=== PATIENT | male | born 1960 | race Caucasian/White ===

== ENCOUNTER 2021-07-04 10:59 | Outpatient (REF) | payer BC, SELFPAY ==
[2021-07-04 14:10] LABS: MANUAL DIFF FLAG NO
[2021-07-04 14:29] LABS: Basophils Absolute Auto 0.1 X10*3/uL (0.0-0.2); Eosinophils Absolute Auto 0.7 X10*3/uL (0.0-0.4); Eosinophils Percent Auto 6.8 % (0-4); Hematocrit 47.4 % (42-52); Hemoglobin 16.2 g/dl (14.0-18.0); Imm Gran Abs Auto 0.06 X10*3/uL (0.00-0.03); Imm Gran Pct Auto 0.6 % (0.0-0.4); Lymphocytes Percent Auto 29.3 % (20-40); Mean Corpuscular HGB Conc 34.2 g/dl (31.0-36.0); Mean Corpuscular Hemoglobin 30.9 pg (27.0-33.0); Mean Corpuscular Volume 90.5 fL (80-98); Mean Platelet Volume 12.1 fL (9.4-12.4); Monocytes Absolute Auto 0.8 X10*3/uL (0.1-1.2); Monocytes Percent Auto 8.1 % (2-11); Neutrophils Absolute Auto 5.6 X10*3/uL (2.0-8.3); Neutrophils Percent Auto 54.2 % (45-73); Platelet Count 200 X10*3/uL (160-400); Red Blood Count 5.24 X10*6/uL (4.60-5.80); Red Cell Distribution Width 12.4 % (11.0-16.0); White Blood Count 10.4 X10*3/uL (4.8-10.8)
[2021-07-04 14:30] LABS: Alanine Aminotransferase 48 U/L (0-40); Albumin Level 4.3 g/dL (3.5-5.0); Alkaline Phosphatase 96 U/L (39-117); Anion Gap 13 (12-20); Aspartate Amino Transferase 36 U/L (5-37); Bilirubin Total 0.6 mg/dL (0.0-1.0); Blood Urea Nitrogen 19 mg/dL (9-16); Carbon Dioxide 22 mmol/L (22-29); Chloride 109 mmol/L (96-108); Cholesterol 208 mg/dL; Estimated Glomerular Filt Rate > 60; Glucose Fasting 97 mg/dL (60-99); HDL Cholesterol 31 mg/dL; LDL Cholesterol Calculated 147 mg/dl; Potassium 4.3 mmol/L (3.3-5.1); Sodium 140 mmol/L (135-145); Total Protein 6.9 g/dL (6.5-8.0); Triglycerides 151 mg/dL
[2021-07-04 14:54] LABS: Prostate Specific Antigen 2.22 ng/mL (<0.05-4.0)
== END 2021-07-04 11:00 | disposition home or self-care (01) ==
LOC: HO.MANLDS 10:59
PROVIDERS: PCP Internal Medicine; Visit Provider Internal Medicine
DX: Z12.5 Encounter for screening for malignant neoplasm of prostate (principal); Z86.79 Personal history of other diseases of the circulatory system
CPT/HCPCS: 36415; 80053; 80061; 84153; 85025

== ENCOUNTER 2022-01-14 07:48 | Outpatient (REF) | payer BC, SELFPAY ==
[2022-01-14 10:58] LABS: MANUAL DIFF FLAG NO
[2022-01-14 11:01] LABS: Basophils Absolute Auto 0.1 X10*3/uL (0.0-0.2); Eosinophils Absolute Auto 0.6 X10*3/uL (0.0-0.4); Hematocrit 47.2 % (42.0-52.0); Hemoglobin 16.4 g/dl (14.0-18.0); Imm Gran Abs Auto 0.04 X10*3/uL (0.00-0.03); Imm Gran Pct Auto 0.4 % (0.0-0.4); Lymphocytes Absolute Auto 2.8 X10*3/uL (1.2-4.9); Lymphocytes Percent Auto 29.5 % (20-40); Mean Corpuscular HGB Conc 34.7 g/dl (31.0-36.0); Mean Corpuscular Hemoglobin 31.5 pg (27.0-33.0); Mean Corpuscular Volume 90.8 fL (80.0-98.0); Monocytes Absolute Auto 0.7 X10*3/uL (0.1-1.2); Monocytes Percent Auto 7.1 % (2-11); Neutrophils Absolute Auto 5.2 x10*3/uL (2.0-8.3); Platelet Count 187 X10*3/uL (160-400); Red Cell Distribution Width 12.6 % (11.0-16.0); White Blood Count 9.3 X10*3/uL (4.8-10.8)
[2022-01-14 11:14] LABS: Anion Gap 15 (12-20); Bilirubin Total 0.5 mg/dL (0.0-1.0); Blood Urea Nitrogen 19 mg/dL (9-16); Calcium 8.9 mg/dL (8.4-10.2); Carbon Dioxide 21 mmol/L (22-29); Chloride 106 mmol/L (96-108); Estimated Glomerular Filt Rate 56; Glucose Fasting 175 mg/dL (60-99); Potassium 4.1 mmol/L (3.3-5.1); Sodium 138 mmol/L (135-145)
[2022-01-14 11:15] LABS: Alanine Aminotransferase 46 U/L (0-40); Albumin Level 4.3 g/dL (3.5-5.0); Alkaline Phosphatase 92 U/L (39-117); Aspartate Amino Transferase 33 U/L (5-37); Total Protein 7.2 g/dL (6.5-8.0)
[2022-01-14 11:26] LABS: Uric Acid 6.9 mg/dL (3.4-7.0)
[2022-01-14 11:34] LABS: Prostate Specific Antigen 1.64 ng/mL (<0.05-4.0); Thyroid Stimulating Hormone 8.15 uIU/mL (0.32-4.0); Vitamin D 25-OH Total 41.1 ng/mL (>30)
== END 2022-01-14 07:49 | disposition home or self-care (01) ==
LOC: HO.MANLDS 07:48
PROVIDERS: PCP Internal Medicine; Visit Provider Internal Medicine
DX: Z12.5 Encounter for screening for malignant neoplasm of prostate (principal); E78.00 Pure hypercholesterolemia, unspecified; E03.9 Hypothyroidism, unspecified; M10.9 Gout, unspecified
CPT/HCPCS: 36415; 80053; 82306; 84153; 84443; 84550; 85025

== ENCOUNTER 2022-01-16 15:56 | Outpatient (REF) | payer BC, SELFPAY ==
[2022-01-16 18:56] LABS: Estimated Average Glucose 120 mg/dL; Hemoglobin A1c % 5.8 %
== END 2022-01-16 15:57 | disposition home or self-care (01) ==
LOC: HO.MANLDS 15:56
PROVIDERS: PCP Internal Medicine; Visit Provider Internal Medicine
DX: R73.9 Hyperglycemia, unspecified (principal)
CPT/HCPCS: 36415; 83036

== ENCOUNTER 2022-08-18 09:41 | Outpatient (REF) | payer BC, SELFPAY ==
[2022-08-18 11:22] LABS: MANUAL DIFF FLAG NO
[2022-08-18 11:38] LABS: Basophils Absolute Auto 0.1 X10*3/uL (0.0-0.2); Basophils Percent Auto 0.8 % (0-2); Eosinophils Absolute Auto 0.7 X10*3/uL (0.0-0.4); Eosinophils Percent Auto 6.9 % (0-4); Hematocrit 47.3 % (42.0-52.0); Hemoglobin 16.1 g/dl (14.0-18.0); Imm Gran Abs Auto 0.06 X10*3/uL (0.00-0.03); Imm Gran Pct Auto 0.6 % (0.0-0.4); Lymphocytes Absolute Auto 3.2 X10*3/uL (1.2-4.9); Lymphocytes Percent Auto 32.4 % (20-40); Mean Corpuscular Hemoglobin 31.1 pg (27.0-33.0); Mean Corpuscular Volume 91.3 fL (80.0-98.0); Mean Platelet Volume 11.9 fL (9.4-12.4); Monocytes Absolute Auto 0.8 X10*3/uL (0.1-1.2); Neutrophils Percent Auto 51.3 % (45-73); Platelet Count 184 X10*3/uL (160-400); Red Blood Count 5.18 X10*6/uL (4.60-5.80); Red Cell Distribution Width 12.7 % (11.0-16.0); White Blood Count 9.8 X10*3/uL (4.8-10.8)
[2022-08-18 14:08] LABS: Alanine Aminotransferase 59 U/L (0-40); Albumin Level 4.5 g/dL (3.5-5.0); Alkaline Phosphatase 83 U/L (39-117); Anion Gap 13 (12-20); Aspartate Amino Transferase 38 U/L (5-37); Bilirubin Total 0.5 mg/dL (0.0-1.0); Blood Urea Nitrogen 20 mg/dL (9-16); Calcium 9.2 mg/dL (8.4-10.2); Carbon Dioxide 27 mmol/L (22-29); Chloride 106 mmol/L (96-108); Cholesterol 223 mg/dL; Estimated Glomerular Filt Rate > 60; Free T4 (Free Thyroxine) 0.96 ng/dL (0.71-1.85); Glucose Random 101 mg/dL (60-115); HDL Cholesterol 30 mg/dL; LDL Cholesterol Calculated 132 mg/dl; Potassium 4.6 mmol/L (3.3-5.1); Sodium 141 mmol/L (135-145); Thyroid Stimulating Hormone 5.23 uIU/mL (0.32-4.0); Triglycerides 306 mg/dL; Uric Acid 7.6 mg/dL (3.4-7.0)
== END 2022-08-18 09:42 | disposition home or self-care (01) ==
LOC: HO.MANLDS 09:41
PROVIDERS: Visit Provider Internal Medicine
DX: E03.9 Hypothyroidism, unspecified (principal); M10.9 Gout, unspecified
CPT/HCPCS: 36415; 80053; 80061; 84439; 84443; 84550; 85025

== ENCOUNTER 2023-03-30 07:47 | Outpatient (REF) | payer BC, SELFPAY ==
[2023-03-30 13:33] LABS: MANUAL DIFF FLAG NO
[2023-03-30 13:57] LABS: Basophils Absolute Auto 0.1 X10*3/uL (0.0-0.2); Basophils Percent Auto 1.1 % (0-2); Eosinophils Absolute Auto 0.4 X10*3/uL (0.0-0.4); Eosinophils Percent Auto 3.9 % (0-4); Hematocrit 43.5 % (42.0-52.0); Hemoglobin 14.6 g/dl (14.0-18.0); Imm Gran Abs Auto 0.04 X10*3/uL (0.00-0.03); Imm Gran Pct Auto 0.4 % (0.0-0.4); Lymphocytes Absolute Auto 2.2 X10*3/uL (1.2-4.9); Lymphocytes Percent Auto 24.5 % (20-40); Mean Corpuscular HGB Conc 33.6 g/dl (31.0-36.0); Mean Corpuscular Hemoglobin 31.5 pg (27.0-33.0); Mean Platelet Volume 12.8 fL (9.4-12.4); Monocytes Absolute Auto 0.7 X10*3/uL (0.1-1.2); Monocytes Percent Auto 8.1 % (2-11); Neutrophils Absolute Auto 5.5 x10*3/uL (2.0-8.3); Platelet Count 180 X10*3/uL (160-400); Red Blood Count 4.63 X10*6/uL (4.60-5.80); Red Cell Distribution Width 13.1 % (11.0-16.0); White Blood Count 8.9 X10*3/uL (4.8-10.8)
[2023-03-30 18:08] LABS: Alanine Aminotransferase 19 U/L (0-40); Alkaline Phosphatase 84 U/L (39-117); Anion Gap 13 (12-20); Aspartate Amino Transferase 19 U/L (5-37); Bilirubin Total 0.5 mg/dL (0.0-1.0); Blood Urea Nitrogen 16 mg/dL (9-16); Carbon Dioxide 26 mmol/L (22-29); Chloride 105 mmol/L (96-108); Cholesterol 173 mg/dL; Estimated Glomerular Filt Rate > 60; Glucose Random 71 mg/dL (60-115); HDL Cholesterol 30 mg/dL; LDL Cholesterol Calculated 125 mg/dl; Potassium 3.6 mmol/L (3.3-5.1); Sodium 140 mmol/L (135-145); Total Protein 6.4 g/dL (6.5-8.0); Triglycerides 90 mg/dL; Uric Acid 5.9 mg/dL (3.4-7.0)
[2023-03-30 18:23] LABS: Free T4 (Free Thyroxine) 1.16 ng/dL (0.71-1.85); Prostate Specific Antigen 2.25 ng/mL (<0.05-4.0); Thyroid Stimulating Hormone 1.48 uIU/mL (0.32-4.0)
== END 2023-03-30 07:48 | disposition home or self-care (01) ==
LOC: HO.MANLDS 07:47
PROVIDERS: Visit Provider Internal Medicine
DX: Z12.5 Encounter for screening for malignant neoplasm of prostate (principal); E03.9 Hypothyroidism, unspecified; E78.00 Pure hypercholesterolemia, unspecified; M10.9 Gout, unspecified
CPT/HCPCS: 36415; 80053; 80061; 84153; 84439; 84443; 84550; 85025

== ENCOUNTER 2024-11-10 07:40 | Outpatient (REF) | payer BC, SELFPAY ==
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
[2024-11-10 13:37] LABS: MANUAL DIFF FLAG NO
[2024-11-10 13:44] LABS: Basophils Absolute Auto 0.1 X10*3/uL (0.0-0.2); Basophils Percent Auto 0.8 % (0-2); Eosinophils Absolute Auto 0.4 X10*3/uL (0.0-0.4); Hematocrit 47.3 % (42.0-52.0); Imm Gran Abs Auto 0.04 X10*3/uL (0.00-0.03); Imm Gran Pct Auto 0.4 % (0.0-0.4); Lymphocytes Absolute Auto 3.2 X10*3/uL (1.2-4.9); Lymphocytes Percent Auto 32.9 % (20-40); Mean Corpuscular HGB Conc 33.8 g/dl (31.0-36.0); Mean Corpuscular Hemoglobin 31.4 pg (27.0-33.0); Mean Corpuscular Volume 92.7 fL (80.0-98.0); Mean Platelet Volume 12.3 fL (9.4-12.4); Monocytes Absolute Auto 0.7 X10*3/uL (0.1-1.2); Monocytes Percent Auto 7.3 % (2-11); Neutrophils Absolute Auto 5.2 x10*3/uL (2.0-8.3); Neutrophils Percent Auto 54.6 % (45-73); Platelet Count 175 X10*3/uL (160-400); Red Cell Distribution Width 12.5 % (11.0-16.0); White Blood Count 9.6 X10*3/uL (4.8-10.8)
[2024-11-10 13:49] LABS: Estimated Average Glucose 103 mg/dL; Hemoglobin A1C 140.1338 umol/L; Hemoglobin A1c % 5.2 % (<6.0); Total Hemoglobin (HGBA1C) 4149.7479 umol/L
[2024-11-10 14:27] LABS: Alanine Aminotransferase 37 U/L (0-40); Albumin Level 4.4 g/dL (3.5-5.0); Alkaline Phosphatase 100 U/L (39-117); Anion Gap 14 (12-20); Aspartate Amino Transferase 38 U/L (5-37); Bilirubin Total 0.6 mg/dL (0.0-1.0); Blood Urea Nitrogen 23 mg/dL (9-16); Calcium 9.4 mg/dL (8.4-10.2); Carbon Dioxide 27 mmol/L (22-29); Chloride 105 mmol/L (96-108); Cholesterol 197 mg/dL (<200); Estimated Glomerular Filt Rate > 60; Glucose Random 82 mg/dL (60-115); HDL Cholesterol 35 mg/dL (>40); LDL Cholesterol Calculated 136 mg/dL (<100); Potassium 4.9 mmol/L (3.3-5.1); Sodium 141 mmol/L (135-145); Total Protein 7.7 g/dL (6.5-8.0); Triglycerides 133 mg/dL (<150)
[2024-11-10 14:28] LABS: Thyroid Stimulating Hormone 3.15 uIU/mL (0.32-4.0)
[2024-11-10 14:41] LABS: Prostate Specific Antigen 1.93 ng/mL (<0.05-4.0)
== END 2024-11-10 07:41 | disposition home or self-care (01) ==
LOC: HO.MANLDS 07:40
PROVIDERS: Visit Provider Internal Medicine
DX: E78.00 Pure hypercholesterolemia, unspecified (principal); R73.9 Hyperglycemia, unspecified; E03.9 Hypothyroidism, unspecified; Z12.5 Encounter for screening for malignant neoplasm of prostate
CPT/HCPCS: 36415; 80053; 80061; 83036; 84153; 84443; 85025

== ENCOUNTER 2025-01-09 15:14 | Outpatient (REF) | payer BC, SELFPAY ==
[2025-01-09 17:13] LABS: C Reactive Protein 1.15 mg/dL (< or = 0.50); Iron 46 mcg/dL (45-160); Percent Iron Saturation 15 % (15-50); Total Iron Binding Capacity 302 mcg/dL (228-428); Unsaturated Iron Binding 256 ug/dL
[2025-01-09 17:27] LABS: Ferritin 66 ng/mL (20-250); Vitamin D 25-OH Total 63.2 ng/mL (>30)
[2025-01-09 17:43] LABS: Folate 4.5 ng/mL (> or = 4.0); Vitamin B12 1027 pg/mL (200-900)
== END 2025-01-09 15:15 | disposition home or self-care (01) ==
LOC: HO.MANLDS 15:14
PROVIDERS: Visit Provider Physician Assistant
DX: R53.82 Chronic fatigue, unspecified (principal)
CPT/HCPCS: 36415; 82306; 82607; 82728; 82746; 83540; 83735; 86140

== ENCOUNTER 2025-01-17 15:27 | Outpatient (REF) | payer BC, SELFPAY ==
--- OUTSIDE RECORDS SUMMARY | 2025-01-17 16:20 | XMS_ITS | Continuity of Care Document ---
Author Organization [facility], [facility] Address [address] [facility] [place] [address] [place] [address] Assessment No assessment recorded. Plan of Treatment Reminders Order Date Submit Date Provider Last Modified By Organization Details Last Modified Time Details Appointments FOLLOW UP 15 2024 04:00P M DR ALVARADO Not available Not available Not available Lab lyme disease igg+igm, serum, reflex western blot 2024 025 [facility], [address] [place] [address], [id number], 01/16/2025 14:23:00 anaplasma phagocyto philum + ehrlichia chaffeens is IgG + IgM panel, serum 2024 025 [facility], [address] [place] [address], [id number], 01/16/2025 14:23:00 rickettsi a rickettsi i igg+igm Ab, serum 2024 025 [facility], [address] [place] [address], [id number], 01/16/2025 14:23:00 Referral gastroent erologist referral 2024 025 [facility], [address] [place] [address], [id number], 01/17/2025 08:19:07 Procedures None recorded. Surgeries None recorded. Imaging None recorded. Medication Orders amlodipin e 5 mg tablet 2024 025 [id number], [address] [place], [place], [id number], 01/16/2025 14:22:39 trazodone 50 mg tablet 2024 025 [id number], [address] [place], [place], [id number], 01/16/2025 14:24:42 Patient TargetsNo targets recorded. Patient InstructionsNo instructions recorded. 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 Barretts esophagus with low grade dysplasia needs new GI, needs f/u endo for Nj's Esophagus Referring Physician: Cindy Mares, Internal Medicine, Encounter Date: 01/16/2025 Problems Name Problem SNOMED Code Status Onset Date Resolution Date Notes Provider Name and Address Organization Details Recorded Time Gout 11967463 Active 2017 Tx with uloric Not Available [facility] 4 03:07:08 Pain of shoulder region 04688827 Active 2017 Right Not Available [facility] 4 03:07:07 Family history of coronary arterios clerosis 801073831 Active 2017 Not Available [facility] 4 03:07:07 History of operativ e procedur e on shoulder 999075677 Active 2017 Right, cartilage /OA Not Available [facility] 4 03:07:07 History of cervical discecto my 26706146369 030322 Active 2017 C5-6 Not Available [facility] 4 03:07:07 Hypothyr oidism 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 Active 2017 Not Available [facility] 4 03:07:07 History of hyperten jimena 172130433 Active 2017 Not Available [facility] 4 03:07:07 Hypercho lesterol emia 95398968 Active 2017 Not Available [facility] 4 03:07:07 Gastroes ophageal reflux disease 387893407 Active 2017 Diesn't tolerate Prilosec/ ranitidin e Not Available [facility] 4 03:07:07 Hiatal hernia 11649473 Active 2017 Not Available [facility] 4 03:07:08 Obstruct mercedes sleep apnea syndrome 74462918 Active 2017 CPAP Not Available [facility] 4 03:07:07 Fibromya lgia 616201134 Active 2017 Dr. Celeste montes Not Available [facility] 4 03:07:07 Liver function tests outside referenc e range 147604449 Active 2019 Not Available [facility] 4 03:07:07 Hypergly cemia 16473132 Active 2021 Not Available [facility] 4 03:07:08 Insomnia 584427039 Active 2021 Not Available [facility] 4 03:07:07 Arthriti s of first carpomet acarpal joint of right hand 15694253990 70051 Active 2021 Not Available [facility] 4 03:07:07 Adjustme nt disorder with anxious mood 90602640 Active 2023 [address] [place], [address], [facility] 4 14:05:33 Anxiety 43118195 Active 2023 [address] [place], [address], [facility] 4 11:42:27 Fatigue 42774546 Active 2024 [address] [place], [address], [facility] 5 14:16:26 [facility] hyperten jimena 49141041 Active 2024 [address] [place], [address], [facility] 5 14:21:34 Chronic insomnia 445176577 Active 2024 [address] [place], [address], [facility] 5 14:24:06 Barretts esophagu s with low grade dysplasi a 09089151810 45081 Active 2024 [address] [place], [address], [facility] 5 14:25:13 Problem Notes None recorded. Medical Equipment None Reported. Allergies Allergen ID Allergen Name Allergen Category Reaction Reaction Severity Criticality Documentation Date Start Date Code Code System Note Provider Name and Address Organization Details Recorded Time 211 lisinopri l medicatio n cough Not available Not available 11/15/2017 93629 [facility] 09:32:29 212 Prilosec medicatio n other Not available Not available 11/15/201792189 5 [facility] 8 09:33:32 Medications Name Sig Start Date Stop Date Status Note LastModified by Organization Details LastModified Time trazodone 50 mg tablet Take 1 tablet every day by oral route at bedtime for 30 days. 2024 active Not Available Not Available Not Avai lable sildenafil 50 mg tablet TAKE 1 TABLET [...] Not Available Not Available Not Avai lable amlodipine 5 mg tablet Take 1 tablet every day by oral route for 30 days. 2024 active Not Available Not Available Not [...] BY MOUTH TWICE DAILY FOR 15 DAYS 01/09 completed Not Available Not Available Not Available zolpidem 10 mg tablet TAKE 1 [...] Not Available Vitals Date Recorded Body height Heart rate Oxygen saturation Oxygen saturation in Arterial blood by Pulse oximetry Systolic blood pressure Diastolic blood pressure Provider Name and Address Organization Details Last Updated DateTime 5 182.88 cm 65 /min 95 % 95 % 166 mm[Hg] 98 mm[Hg] Shandra Collazo [facility] 14:07:45 Social History Question Answer Notes LastModified by Organizat ion Details LastModified Time Tobacco Smoking Status Former Smoker Not Available [facility] 07/16/2020 03:36:24 What Was The Date Of Your Most Recent Tobacco Screening? 01/16/2025 [email or web address] Information not available 01/16/2025 Do You Or Have You Ever Used Any Other Forms Of Tobacco Or Nicotine? No [email or web address] Information not available 03/29/2023 Sex: Unknown Functional Status None recorded. Mental Status None recorded. Family History Nothing Reported. Medical History No medical history recorded. Immunizations Vaccine Type Date Status Note Provider Nam e and Address Organization Details Recorded Time zoster, unspecified formulation 0 completed Not Available [facility] 09/18/2023 03:07:08 Influenza, split virus, quadrivalent, preservative 0 completed Not Available [facility] 09/18/2023 03:07:08 zoster recombinant 1 completed Not Available [facility] 09/18/2023 03:07:08 COVID-19, mRNA, LNP-S, PF, 30 mcg/0.3 mL dose 1 completed Not Available [facility] 09/18/2023 03:07:08 Past Encounters Encounter ID Performer Location Encounter Start Date Encounter Closed Date Diagnosis/Indication Diagnosis SNOMED-CT Code Diagnosis ICD10 Code Diagnosis Note [id number] Rogelio Alvarado DO [facility] [address] [facility],[place] [address] 01/09/2025 14:37:01 01/09/2025 16:22:23 Depression screening 453402487 Z13.31 negative Fatigue 44343638 R53.82 agreed to additional lab work and f/u with US echo [id number] Rogelio Alvarado DO [facility] [address] [facility], [place] [address] 01/16/2025 13:55:55 01/16/2025 15:10:39 Fatigue 32738636 R53.83 will add to lab work for tick borne illness Essential hypertension 24266540 I10 will start on amlodipine 5 mg Chronic insomnia 1251719 04 F51.04 start on trazodone alt Barrettdora e mathewagus with low grade dysplasia 8941888359 462693 K22.710 wiil set up with [facility] Concerns Section Related Observation LastModified by Organization Detai ls LastModified Time None Recorded Concern Status LastModified by Organization Details LastModified Time None Recorded Payers Encounter Date Sequence Insurance Name Policy Number Policy Morton Covered Member ID Morton Member ID Guarantor Name 01/16/2025 1 CHANTELLE: JAZLYN (PPO) [id number] Venkat Posadas [id number] Venkat Posadas Notes Date Note Type Note Provider Name a nd Address Organization Details Recorded Time 01/16/2025 text/html f/u fatigue/still feeling poorly patient's blood work was normalthe patient has his echo scheduled for 01/30/25 patient was talking to his friend, thinks he should get a tick panel, not sure if he was bite but he does go outside a lot also admits he hasn't been sleeping which is probably more of his issue than anything elsehe has a CPAP which hasn't changed the patient reports that he is just waking up , no issues he knows of that would wake him upon zolpidem 10 mg QD doesn't seem to help anymore his BP is still elevated in office todayhis CPAP is relatively new, two years old supplies are up to date [address] [address] [place] [address], [place], [address], [facility] 01/16/2025 14:26:54
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
[2025-01-18 11:08] LABS: Lyme Abs Screen <0.90 index
[2025-01-20 23:04] LABS: Spotted Fever Group IgG Not Detected (Not Detected); Spotted Fever Group IgM Not Detected (Not Detected); Typhus Fever Group IgG Not Detected (Not Detected); Typhus Fever Group IgM Not Detected (Not Detected)
[2025-01-22 16:38] LABS: A phagocytophilum IgG <1:64 (<1:64); A phagocytophilum IgM <1:20 (<1:20)
== END 2025-01-17 15:28 | disposition home or self-care (01) ==
LOC: HO.MANLDS 15:27
PROVIDERS: Visit Provider Physician Assistant
DX: R53.83 Other fatigue (principal)
CPT/HCPCS: 86617; 86618; 86666; 86757

== ENCOUNTER 2025-06-19 11:21 | Outpatient (REF) | payer BC, SELFPAY ==
[2025-06-19 13:43] LABS: MANUAL DIFF FLAG NO
[2025-06-19 13:50] LABS: Hematocrit 44.7 % (42.0-52.0); Hemoglobin 15.3 g/dl (14.0-18.0); Imm Gran Abs Auto 0.04 X10*3/uL (0.00-0.03); Imm Gran Pct Auto 0.5 % (0.0-0.4); Lymphocytes Absolute Auto 2.2 X10*3/uL (1.2-4.9); Mean Corpuscular HGB Conc 34.2 g/dl (31.0-36.0); Mean Corpuscular Hemoglobin 30.1 pg (27.0-33.0); Mean Corpuscular Volume 87.8 fL (80.0-98.0); NRBC Abs Auto 0.000 X10*3/uL (0.0-0.012); NRBC Pct Auto 0.0 /100WBC (0.0-0.2); Platelet Count 207 X10*3/uL (160-400); Red Blood Count 5.09 X10*6/uL (4.60-5.80); White Blood Count 8.1 X10*3/uL (4.8-10.8)
--- OUTSIDE RECORDS SUMMARY | 2025-06-19 14:17 | XMS_ITS | Encounter Summary ---
Author Organization [facility] Address [address] [place] [address] Phone Care Team Providers Care Instrument Checker Name Role Phone Daryl Biswas MD Unavailable [email or web address] Rogelio Juarez DO Primary Care Provider [phone] Rogelio Juarez DO Unavailable Encounter Details Date Type Department Care Team (Late st Contact Info) Description 01/11/2025 Procedure Pass [facility] Echo Lab [address] [place] [address] Social History Tobacco Use Types Packs/Day Years Used Date Smoking Tobacco: Former Cigarettes Q uit: 2008 Smokeless Tobacco: Never Alcohol Use Standard Drinks/Week Comments Not Currently 0 (1 standard drink = 0.6 oz pur e alcohol) Education Answer Date Recorded Are you interested in more education? Not on zandra e 01/08/2023 Are you concerned about learning? Not on file 01/08/2023 No 01/08/2023 No 01/08/2023 Digital Access Answer Date Recorded No 02/08/2023 No 02/08/2023 Reliable internet access at home? Not on file 02/08/2023 Device with a working camera? Not on file Sex and Gender Information Value Date Recorded Sex Assigned at Not on file Legal Sex Male 9:51 PM EDT Gender Identity Not on file Sexual Orientation Not on file documented as of this encounter Plan of Treatment Upcoming Encounters Date Type Department Care Team (Late st Contact Info) Description 05/16/2025 Procedure Pass Echo Lab [address] [place] [address] 08/16/2025 2:00 PM EST Appointment Echo Lab [address] [place] [address] Antoinette Tomlinson PA-C [address] [place] [address] 09/03/2025 3:00 PM EST Office Visit [facility] [address]rd Floor, [address] [place] [address] Otilio Phipps MD [address] [place] [address], [address] [address] documented as of this encounter Visit Diagnoses Not on filedocumented in this encounter Care Teams Instrument Checker Relationship Specialty Start Date End Date Rogelio Juarez DO PCP - General 08/12/17 Daryl Biswas MD [email or web address] Historical LMR Provider 06/29/17 Rogelio Juarez DO [address] [place] [address] [place] [address] Insurance Assigned Provider 12/18/23 documented as of this encounter Additional Source Comments The information contained in this document represents components of the legal health record. It is not the complete legal health record.[facility]
--- OUTSIDE RECORDS SUMMARY | 2025-06-19 14:17 | XMS_ITS | Encounter Summary ---
Author Organization [facility] Address [address] [address] Phone Care Team Providers Care Seconds Handler Name Role Phone Daryl Biswas MD Unavailable [email or web address] Rogelio Juarez DO Primary Care Provider Rogelio Juarez DO Unavailable Encounter Details Date Type Department Care Team (Late st Contact Info) Description 03/09/2025 Transcribe Orders [facility] Specimen Processing 30 [place] [address] Rogelio Juarez, DO [address] [facility] [place] [address] [email or web address] Social History Tobacco Use Types Packs/Day Years [...] Info) Description 05/16/2025 Procedure Pass Echo Lab [address] [place] [address] 08/16/2025 2:00 PM EST Appointment Echo Lab [address] [place] [address] Antoinette Tomlinson PA-C [address] [place] [address] 09/03/2025 3:00 PM EST Office Visit [facility] [address]rd Floor, [address] [place] [address] Otilio Phipps MD [address] [place] [address] 301 [place] [address] documented as of this encounter Visit Diagnoses Not on filedocumented in this encounter Care Teams Seconds Handler Relationship Specialty Start Date End Date Rogelio Juarez DO PCP - General 08/12/17 Daryl Biswas MD [email or web address] Historical LMR Provider 06/29/17 Rogelio Juarez DO [address] [facility] [place] [address] Insurance Assigned Provider 12/18/23 documented as of this encounter Additional Source Comments The information contained in this document represents components of the legal health record. It is not the complete legal health record.[facility]
--- OUTSIDE RECORDS SUMMARY | 2025-06-19 14:17 | XMS_ITS | Encounter Summary ---
Author Organization [facility] Address [address] [place] [address] Phone Care Team Providers Care Group Sales Coordinator Name Role Phone Rogelio Juarez DO Unavailable Daryl Biswas MD Unavailable [email or web address] Taylor Burleson NP Unavailable [phone] Juventino Sethi MD Unavailable + [phone] Alf Cruz MD Unavailable Temo [place] PA-C Unavailable [phone] Rogelio Juarez DO Primary Care Provider [phone] Rogelio Juarez DO Unavailable Encounter Details Date Type Department Care Team (Late st Contact Info) Description 2020 Procedure Pass [facility], Ct Scan - [address] [address] Social History Tobacco Use Types Packs/Day Years Used Date Smoking Tobacco: Former Cigarettes Q uit: 2007 Smokeless Tobacco: Never Alcohol Use Standard Drinks/Week Comments Not Currently 0 (1 standard drink = 0.6 oz pur e alcohol) Sex and Gender Information Value Date Recorded Sex Assigned at Not on file Legal Sex Male 9:51 PM EDT Gender Identity Not on file Sexual Orientation Not on file documented as of this encounter Plan of Treatment Upcoming Encounters Date Type Department Care Team (Late st Contact Info) Description 05/16/2025 Procedure Pass Echo Lab [address] [place] [address] 08/16/2025 2:00 PM EST Appointment Echo Lab [address] [place] [address] Antoinette Tomlinson PA-C [address] [place] [address] 09/03/2025 3:00 PM EST Office Visit [facility] [address] [place] [address] 3rd Floor, [address] [place] [address] Otilio Phipps MD [address] [place] [address] documented as of this encounter Visit Diagnoses Not on filedocumented in this encounter Care Teams Group Sales Coordinator Relationship Specialty Start Date End Date Rogelio Juarez DO [address] [place] [address] [facility], [place] [address] PCP - General 08/12/17 Rogelio Juarez DO [address] [place] [address] Historical LMR Provider 06/29/17 09/20/21 Daryl Biswas MD [email or web address] Historical LMR Provider 06/29/17 Taylor Burleson NP [address] [place] [address] [email or web address] Historical LMR Provider 06/29/17 2 Juventino Sethi MD [address] [place] [address] [email or web address] Historical LMR Provider 06/29/17 09/20/21 Alf Cruz MD [address] [place] [address] Historical LMR Provider 06/29/17 09/20/21 Temo [place] PA-C [address] [place] [address] [facility], [place] [address] Historical LMR Provider 06/29/17 09/20/21 Rogelio Juarez DO [address] [place] [address] [place] [address] Insurance Assigned Provider 12/18/23 documented as of this encounter Additional Source Comments The information contained in this document represents components of the legal health record. It is not the complete legal health record.[facility]
--- OUTSIDE RECORDS SUMMARY | 2025-06-19 14:17 | XMS_ITS | Encounter Summary ---
Author Organization [facility] Address [address] [place] [address] Phone Care Team Providers Care Inserting Press Operator Name Role Phone Rogelio Juarez DO Unavailable Daryl Biswas MD Unavailable [email or web address] Taylor Burleson NP Unavailable [phone] Juventino Sethi MD Unavailable [phone] Alf Cruz MD Unavailable Temo [place] PA-C Unavailable [phone] Rogelio Juarez DO Primary Care Provider [phone] Rogelio Juarez DO Unavailable Encounter Details Date Type Department Care Team (Late Contact Info) Description 03/17/2019 Procedure Pass OR Admitting Dept - Virtual Department [address] [place] [address] Social History Tobacco Use Types Packs/Day Years [...] Encounters Date Type Department Care Team (Late Contact Info) Description 05/16/2025 Procedure Pass Echo Lab [address] [place] [address] 08/16/2025 2:00 PM EST Appointment Echo Lab [address] [place] [address] Antoinette Tomlinson PA-C [address] [place] [address] 09/03/2025 3:00 PM EST Office Visit [facility] [address] [place] [address] 3rd Floor, [address] [place] [address] Otilio Phipps MD [address] [place] [address] [email or web address] documented as of this encounter Visit Diagnoses Not on filedocumented in this encounter Care Teams Inserting Press Operator Relationship Specialty Start Date End Date Rogelio Juarez DO [address] [place] [address] [facility] Medicine, [place] [address] PCP - General 08/12/17 Rogelio Juarez DO [address] [place] [address] Historical LMR Provider 06/29/17 09/20/21 Daryl Biswas MD [email or web address] Historical LMR Provider 06/29/17 Taylor Burleson NP [address] [place] [address] [email or web address] Historical LMR Provider 06/29/17 2 Juventino Sethi MD [address] [place] [address] [email or web address] Historical LMR Provider 06/29/17 09/20/21 Alf Cruz MD [address] [place] [address] [address] [place] [address] Historical LMR Provider 06/29/17 09/20/21 Temo [place] PA-C [address] [place] [address] [facility], [place] [address] Historical LMR Provider 06/29/17 09/20/21 Rogelio Juarez DO [address] [place] [address] [place] [address] Insurance Assigned Provider 12/18/23 documented as of this encounter Additional Source Comments The information contained in this document represents components of the legal health record. It is not the complete legal health record.[facility]
--- OUTSIDE RECORDS SUMMARY | 2025-06-19 14:17 | XMS_ITS | Encounter Summary ---
Author Organization [facility] Address [address] [place] [address] Phone Care Team Providers Care Biofuels Processing Technician Name Role Phone Daryl Biswas MD Unavailable [email or web address] Rogelio Juarez DO Primary Care Provider [phone] Rogelio Juarez DO Unavailable Reason for Referral * Outpatient Procedure - Closed Specialty Diagnoses / Procedures Referred By Percy lema Referred To Contact Radiology Diagnoses Chronic fatigue, unspecified Procedures Adult Echo TTE Cindy Mares PA [address] [facility] [place] [address] Phone: tel: fax: Referral ID Status Reason Start Date Expiration Date Visits Re quested Visits Authorized [id number] Closed 01/11/2025 01/11/2026 1 1 Encounter Details Date Type Department Care Team (Latest Contact Info) Description 01/11/2025 Transcribe Orders Virtual Department [address] [place] [address] Cindy Mares PA 6 [place] [address] Chronic fatigue, unspecified (Primary Dx) Social History Tobacco Use Types Packs/Day Years [...] Info) Description 05/16/2025 Procedure Pass Echo Lab [address] [place] [address] 08/16/2025 2:00 PM EST Appointment Echo Lab [address] [place] [address] Antoinette Tomlinson PA-C [address] [place] [address] [email or web address] 09/03/2025 3:00 PM EST Office Visit [facility] [address] [place] [address] 3rd Floor, [address] [place] [address] Otilio Phipps MD [address] [place] [address], [address] [address] documented as of this encounter Results * TTE COMPREHENSIVE (01/30/2025 2:09 PM EDT) Body Surface Area 2.37 m2 Height 183 cm Weight 116 kg Systolic BP 138 mmHg Diastolic BP 80 mmHg Interventricular Septum Thickness 9 6 - 11 mm Left Ventricle Internal Diameter End Diastole 56 42 - 58 mm Left Ventricle Internal Diameter End Systole 48 <40 mm Left Ventricular Outflow Tract Diameter 20.0 mm LVOT VTI REST 108.0 mm Left Ventricular Outflow Tract Velocity 0.8 m/s Left Ventricular Outflow Tract Gradient at Rest 3 mmHg Left Ventricular Posterior Wall Thickness 10 6 - 11 mm Left Ventricle Ea Lateral Wave Speed 9.7 cm/s Left Ventricle Ea Septal Wave Speed 7.9 cm/s Mitral Valve Deceleration Time 103 ms Ejection Fraction 28 50 - 75 Percent Left Atrium Dimension Anterior-Posterior 58 15 - 40 mm Aortic Valve Mean Gradient 5 mmHg Aortic Valve Time Velocity Integral 183.0 mm Aortic Valve Peak Velocity 1.4 m/s Aortic Valve Peak Gradient 8 mmHg Aortic Sinus Diameter 31 <40 mm Ascending Aorta Diameter 29 <36 mm Inferior Vena Cava Diameter 25 <21 mm Mitral Valve Aliasing Velocity 46.2 cm/s Mitral Valve PISA Radius 1.10 cm Mitral Valve Regurgitation Time Volume Integral 119.0 cm Mitral Valve Peak Velocity 496.0 cm/s Left Ventricle E Wave Speed 120.0 cm/s Right Ventricle Basal Diameter 33 25 - 41 mm Tricuspid Valve Peak Velocity 2.6 m/s Raw LV EF% 27 % MV E/E' Tissue Velocity Lateral 12.37 Mitral Valve EROA 0.71 cm2 Relative Wall Thickness 0.36 0.22 - 0.42 Left Ventricular Mass 205.5 g Left Ventricle indexed to BSA 86.7 g/m2 MV E/e' septal 15.19 Left Ventricle E/e' Average 13.8 Aortic Valve Prosthetic Peak Gradient 8 mmHg Aortic Valve Prosthetic Mean Gradient 5 mmHg Aortic Valve Sinus Index by BSA 13 mm/m2 Aorta Sinus Index by Height 1.69 cm/m Aorta Sinus CSA index by Height 4.12 cm2/m Ascending Aorta Index 12 mm/m2 Asc Aorta CSA Index by Height 3.61 cm2/m Mitral Valve Regurgitant Volume PISA Equation 84 ml Right Ventricle to Right Atrium Pressure Gradient 27 mmHg Right Ventricle Peak Systolic Pressure (Assuming RAP 10) 37 mmHg MGB CV ECHO TV RVSP (ASSUMING RAP OF 5) 32 mmHg RVSP (Exclusive of RAP) 27 mmHg Ascending Aorta Index 12 mm Aortic Sinus Index 13 mm Ascending Aorta Diameter 12 mm Aortic Valve Sinus Index 1 13 20 - 32 mm AO ASC DIAM BSA INDEX 12.24 Echo E/Ea 15.19 Left Atrial Volume Index 41 16 - 34 mL/m2 Right Ventricle Peak Systolic Pressure 30 mmHg Right Ventricle TAPSE 1 >=17 mm Right Ventricle Pulse Doppler S Wave 7.5 >=9.5 cm/s Right Ventricle Mid Diameter 27 19 - 35 mm Right Ventricle Longitudinal Diameter 54 59 - 83 mm Left Atrial Volume 96 mL Left Atrial Volume Index by Height 52 mL/m Right Atrium Area 26 cm2 Right Atrium Area index 11 cm2/m2 Right Atrium Pressure Estimated 3 mmHg Anatomical Region Laterality Modality Heart Ultrasound Narrative 01/30/2025 2:31 PM EDT Images from the original result were not included. Normal LV size and thickness with severe global LV dysfunction EF 25%. Normal PA pressure estimation. Mild left atrial enlargement Patient peers to be tachycardic in atrial fibrillation during the study. There is moderate to severe central mitral regurgitation. Normal RV size with maybe some mild hypokinesis hard to assess due to tachycardia. Moderate tricuspid regurgitation. Left Ventricle The left ventricle is normal in size. There is normal wall thickness. There is normal left ventricular systolic function. The LV ejection fraction is 28% (calculated via biplane measurement). There is severe diffuse hypokinesis. LV diastolic function could not be adequately assessed. Due to atrial fibrillation. Right Ventricle The right ventricle is normal in size. The RV basal dimension is 33 mm. The RV mid dimension is 27 mm. The RV longitudinal dimension is 54 mm. Right ventricular systolic function could not be assessed. Left Atrium The left atrium is dilated. The left atrial anterior-posterior dimension is 58 mm. The left atrial volume index by BSA is 41 mL/m2. There is systolic flow reversal in the pulmonary vein consistent with severe mitral regurgitation. Right Atrium The right atrium is dilated. The right atrial area is 26 cm2. The IVC is normal in size with normal inspiratory collapse. The IVC diameter is 25 mm. Mitral Valve There is mitral valve thickening. There is no mitral stenosis. There is severe mitral regurgitation. MR ERO 0.72cm2. MR Volume 86ml. Tricuspid Valve The tricuspid valve appears normal. There is no tricuspid stenosis. There is moderate to severe central tricuspid regurgitation. There is paravalvular regurgitation. The RV systolic pressure was calculated at 30 mmHg (using TR peak velocity of 2.6 m/s and assuming an RA pressure of 3 mmHg). Normal pulmonary pressure. Aortic Valve The aortic valve is tricuspid. There is no aortic stenosis. There is no aortic regurgitation. The visualized portions of the thoracic aorta appear normal in size. Pulmonic Valve The pulmonic valve appears normal. There is no pulmonic stenosis. There is no pulmonic regurgitation. Pericardium There is no pericardial effusion. General Findings The image quality was good (2). Technique(s) used in the evaluation: Color flow Doppler and Spectral Doppler. The predominant rhythm during the study was atrial fibrillation. Comparison Findings There are no prior studies for comparison. IAS/IVS The interatrial septum appears normal. us Cindy RUIZ CV ECHO ORDERABLES Final Re sult documented in this encounter Visit Diagnoses Diagnosis Chronic fatigue, unspecified- Primary Chronic fatigue, unspecified documented in this encounter Care Teams Biofuels Processing Technician Relationship Specialty Start Date End Date oRgelio Juarez DO PCP - General 08/12/17 Daryl Biswas MD [email or web address] Historical LMR Provider 06/29/17 Rogelio Juarez DO [address] [place] [address] [email or web address] Insurance Assigned Provider 12/18/23 documented as of this encounter Additional Source Comments The information contained in this document represents components of the legal health record. It is not the complete legal health record.[facility]
--- OUTSIDE RECORDS SUMMARY | 2025-06-19 14:17 | XMS_ITS | Encounter Summary ---
Author Organization [facility] Address [address] [place] [address] [place] [address] Phone Care Team Providers Care Crozer Operator Name Role Phone Daryl Biswas MD Unavailable [email or web address] Rogelio Juarez DO Primary Care Provider [phone] Rogelio Juarez DO Unavailable Encounter Details Date Type Department Care Team (Late st Contact Info) Description 05/22/2025 Procedure Pass [facility] [address] [place] [address] Social History Tobacco Use Types Packs/Day Years [...] with a working camera? Not on file Intimate Partner Violence Answer Date R ecorded Are you denied basic needs s uch as food, clothing, or medical care? No 03/22/2025 In the past 12 months have y ou been in a relationship with a person who hurts, threatens, or tries to control you? No 03/22/2025 Are you denied basic needs s uch as food, clothing, or medical care? No 03/22/2025 In the past 12 months have y ou been in a relationship with a person who hurts, threatens, or tries to control you? No 03/22/2025 Sex and Gender Information Value Date Recorded Sex Assigned at Not on file Legal Sex Male 9:51 PM EDT Gender Identity Not on file Sexual Orientation Not on file documented as of this encounter Plan of Treatment Upcoming Encounters Date Type Department Care Team (Late st Contact Info) Description 05/16/2025 Procedure Pass Echo Lab [address] [place] [address] 08/16/2025 2:00 PM EST Appointment Echo Lab [address] [place] [address] Antoinette Tomlinson PA-C [address] [place] [address] 09/03/2025 3:00 PM EST Office Visit [facility] [address] [place] [address] 3rd Floor, [address] [place] [address] Otilio Phipps MD [address] [place] [address] documented as of this encounter Visit Diagnoses Not on filedocumented in this encounter Care Teams Crozer Operator Relationship Specialty Start Date End Date Rogelio Juarez DO PCP - General 08/12/17 Daryl Biswas MD [email or web address] Historical LMR Provider 06/29/17 Rogelio Juarez DO [address] [place] [address] Insurance Assigned Provider 12/18/23 documented as of this encounter Additional Source Comments The information contained in this document represents components of the legal health record. It is not the complete legal health record.[facility]
--- OUTSIDE RECORDS SUMMARY | 2025-06-19 14:17 | XMS_ITS | Encounter Summary ---
Author Organization [facility] Address [address] [address] Phone Care Team Providers Care Furnace Brazer Name Role Phone Daryl Biswas MD Unavailable [email or web address] Rogelio Juarez DO Primary Care Provider [phone] Rogelio Juarez DO Unavailable Encounter Details Date Type Department Care Team (Latest Contact Info) Description 03/09/2025 Transcribe Orders [facility] Specimen Processing 30 [place] [address] Otilio Phipps MD [address] [facility], [address] [place] [address] [email or web address] Mitral valve disease (Primary Dx) Social History Tobacco Use Types [...] Info) Description 05/16/2025 Procedure Pass Echo Lab [address] [place] [address] 08/16/2025 2:00 PM EST Appointment Echo Lab [address] [place] [address] Antoinette Tomlinson PA-C [address] [place] [address] [email or web address] 09/03/2025 3:00 PM EST Office Visit [facility] [address] [place] [address] 3rd Floor, [address] [place] [address] Otilio Phipps MD [address] [place] [address], [address] [address] documented as of this encounter Results * (ABNORMAL) PT-INR (03/09/2025 1:40 PM EDT) PT 17.0(H) 10.2 - 12.9 sec [facility] INR 1.4(H) 0.9 - 1.1 [facility] Comment:Therapeutic range fo r oral Vitamin K antagonists: 2.0-3.5 Blood 03/09/2025 1:40 PM EDT 03/09/2025 1:46 PM EDT us Otilio Phipps MD LAB BLOOD ORDERABLES Final Result [facility] [address] [place] [address] documented in this encounter Visit Diagnoses Diagnosis Mitral valve disease- Primary Other and unspecified mitral valve diseases documented in this encounter Care Teams Furnace Brazer Relationship Specialty Start Date End Date Rogelio Juarez DO [email or web address] PCP - General 08/12/17 Daryl Biswas MD [email or web address] LMR Provider 06/29/17 Rogelio Juarez DO [address] [place] [address] Insurance Assigned Provider 12/18/23 documented as of this encounter Additional Source Comments The information contained in this document represents components of the legal health record. It is not the complete legal health record.[facility]
--- OUTSIDE RECORDS SUMMARY | 2025-06-19 14:17 | XMS_ITS | Encounter Summary ---
Author Organization [facility] Address [address] [place] [address] [place] [phone] Phone Care Team Providers Care Burner Machine Operator Name Role Phone Daryl Biswas MD Unavailable [email or web address] Rogelio Juarez DO Primary Care Provider [phone] Rogelio Juarez DO Unavailable Encounter Details Date Type Department Care Team (Late st Contact Info) Description 03/22/2025 Procedure Pass [facility] [address] [place] [address] Social History Tobacco Use Types Packs/Day Years [...] Info) Description 05/16/2025 Procedure Pass [facility] [address] [place] [address] 08/16/2025 2:00 PM EST Appointment Echo [facility] [address] [place] [address] Antoinette Tomlinson PA-C [address] [place] [phone] 09/03/2025 3:00 PM EST Office Visit [facility] [address] [place] [address] [address] Floor, [address] [place] [id number] Otilio Phipps MD [address] [place] [phone] documented as of this encounter Visit Diagnoses Not on filedocumented in this encounter Care Teams Burner Machine Operator Relationship Specialty Start Date End Date Rogelio Juarez DO PCP - General 08/12/17 Daryl Biswas MD [email or web address] Historical LMR Provider 06/29/17 Rogelio Juarez DO [address] [facility] [place] [address] Insurance Assigned Provider 12/18/23 documented as of this encounter Additional Source Comments The information contained in this document represents components of the legal health record. It is not the complete legal health record.[facility]
--- OUTSIDE RECORDS SUMMARY | 2025-06-19 14:17 | XMS_ITS | Clinical Summary ---
Author Organization [facility] Address [address] [place] [id number] Phone Care Team Providers Care Marketing Systems Analyst Name Role Phone Daryl Biswas MD Unavailable [email or web address] Primary Care Provider [phone] Rogelio Juarez DO Unavailable Allergies Active Allergy Reactions Criticality Noted Date Comments Omeprazole GI Upset 12/01/2017 Azithromycin Other (See Comments) 12/01/2017 Muscle cramps Medications cholecalciferol (VITAMIN D3) 5,000 unit tablet Take 5,000 Units by mouth daily. Active sildenafil (VIAGRA) 50 mg tablet TAKE DIRECTED BY YOUR PRESCRIBER OR PACKAGE DIRECTIONS 36 tablet 8 06/05/20 19 Active Additional Information Patient not taking.Reported on 06/07/2025 DULoxetine (CYMBALTA) 60 MG capsuleIndications: Primary osteoarthritis of both first carpometacarpal joints TAKE 1 CAPSULE DAILY 90 capsule 3 01/04/20 20 Active febuxostat (ULORIC) 40 mg tablet TAKE 1 TABLET DAILY 90 tablet 3 07/17/20 20 Active meloxicam (MOBIC) 15 MG tablet 01/25/20 25 Active SYNTHROID 175 mcg tablet Take 175 mcg by mouth daily. Active apixaban (ELIQUIS) 5 mg tablet Take 5 mg by mouth 2 (two) times a day. Active sacubitriL-valsarta n (ENTRESTO) 24-26 mg per tablet Take 1 tablet by mouth 2 (two) times a day. 60 tablet 5 03/09/20 25 Active atorvastatin (LIPITOR) 40 MG tablet Take 1 tablet (40 mg total) by mouth daily. 90 tablet 5 03/22/20 25 Active clopidogrel (PLAVIX) 75 mg tablet Take 1 tablet (75 mg total) by mouth daily. 90 tablet 5 03/22/20 25 Active traZODone (DESYREL) 50 MG tablet Take 50 mg by mouth nightly at bedtime. Active carvedilol (COREG) 12.5 MG tablet Take 1 tablet (12.5 mg total) by mouth 2 (two) times a day with meals. 90 tablet 1 05/16/20 Active empagliflozin (JARDIANCE) 10 mg tablet Take 1 tablet (10 mg total) by mouth daily. 90 tablet 1 05/16/20 Active Additional Information Patient not taking.Reported on 06/07/2025 Hospital, Clinic, or Other Facility Administered Medication Ordered Dose Route Frequency Start Date End Date Status sodium chloride (NS) 0.9 % syringe flush 3 mL 3 mL IV As needed 03/09/2025 Active Active Problems Problem Noted Date Diagnosed Date Atrial fibrillation 05/17/2025 Assessment & Plan (05/17/2025 2:30 PM EDT): He continues in A-fib which was new for him earlier this year. He remains adequately anticoagulated on Eliquis 5 mg twice daily without bleeding complaint or any missed doses. Continue carvedilol- see below. We are going to schedule him for a cardioversion and see if this helps with his dyspnea and fatigue which he is currently endorsing. Cardioversion to be scheduled at [facility] and we will see him in follow-up thereafter. Atherosclerosis of [place] ronary artery of [place] heart without angina pectoris 05/17/2025 Assessment & Plan (05/17/2025 2:32 PM EDT): Successful PCI of the mid and distal LAD with 1 drug-eluting stent in each lesion Because of the location of the ostial circumflex stenosis, angioplasty only was performed with final result showing some improvement Continue clopidogrel 75 mg daily for at least 1 year. He denies any angina today. Continue to optimize cardiovascular risk factors. He declines cardiac rehab referral, if changes mind we can refer him. Follow-up in 3 months. Benign essential hypertension 05/17/2025 Assessment & Plan (05/17/2025 2:32 PM EDT): Blood pressure is high today. We are making multiple medication adjustments, see below. Other hyperlipidemia 05/17/2025 Assessment & Plan (05/17/2025 2:34 PM EDT): LDL goal less than 70. Most recent LDL noted to be 137 02/2025 with some mild hepatic dysfunction as well. He has been started on atorvastatin 40 mg daily which he is tolerating well thus far. Asked patient to repeat fasting lipid panel/LFTs in 3 months. Cardiomyopathy 05/17/2025 Assessment & Plan (05/17/2025 2:39 PM EDT): Likely ischemic versus tachycardia induced. His EF is very low most recent echo estimates 25%. He is much better rate controlled today and is now status post PCI. He is actually not volume overloaded at all today but does have some shortness of breath and fatigue, we are going to cardiovert him. Carvedilol and metoprolol are both listed on patient's medication list, patient states unsure who/when he was started on metoprolol. We are going to stop the metoprolol tartrate and increase his carvedilol from 3.125 mg twice daily to 12.5 mg twice daily. Assess rate control and vitals with this change. He will continue low-dose Entresto twice daily. I have added Jardiance 10 mg daily. Asked patient to obtain a BMP in 2 weeks. Repeat echocardiogram in 3 months which has been ordered. Follow-up in 3 months. Heart failure teaching points reviewed and patient will call the office for any change or progression of symptoms. Continue to uptitrate GDMT. Mitral valve disease 03/22/2025 Assessment & Plan (05/17/2025 2:42 PM EDT): Moderate to severe MR on echo Mild to moderate MR via cath Consider contribution to his current symptoms. Continue to follow with imaging. Primary osteoarthritis of both knees 12/01/2017 Assessment & Plan (11/28/2018 4:38 PM EDT): Mild medial compartment osteoarthritis of the knees. Relatively asymptomatic at the present time. He understands the utility of monitoring his weights to keep it is low as possible, strengthening his quadriceps muscles, avoiding injury and wearing well fitting supportive shoes with good shock absorption. Assessment & Plan (05/30/2018 5:58 PM EDT): Stable with mild medial compartment and patellofemoral pain but no ligamental laxity or evidence of meniscal disruption. In addition to well fitting supportive shoes with good shock absorption he is to do some gentle quadriceps strengthening and work on his weight. Assessment & Plan (12/01/2017 3:07 PM EDT): Generally quiet now. Mild cystitis in the morning. No hypermobility or internal derangement. Discussed need for well fitting shoes with good shock absorption as well as quadriceps strengthening. Cervical radicular pain 12/01/2017 Assessment & Plan (11/28/2018 4:38 PM EDT): He does have loss and pinprick sensation in the right arm. He does have symmetrical reflexes in the upper and lower extremities. There is no muscular atrophy in the scapulothoracic area or in the proximal or distal muscles of either upper extremity. He does have diminished range of motion in extension and bilateral lateral bending of the cervical spine. There are no current radicular signs or symptoms. He may use a cervical pillow. Sickle therapy may be recommended if he notes increasing stiffness or pain. Assessment & Plan (05/30/2018 5:58 PM EDT): Some mild stiffness but no radicular component. He is doing well in this regard. Assessment & Plan (12/01/2017 3:06 PM EDT): Currently in active. Mild cervical pain but no myelopathy or radiculopathy. Gout 12/01/2017 Assessment & Plan (08/26/2020 3:38 PM EST): Recent lab work as well as CT and ultrasound of abdomen reviewed. He does have chronic elevation of his liver transaminases which appear to be secondary to fatty liver disease on an ultrastructural level but further work-up will be undertaken after he is on a lower dose of Uloric for the next few weeks to see whether this is a drug effect directly from Uloric on the liver, a manifestation of fatty liver disease, with the development of autoimmune liver disease. He has tried and failed allopurinol. Hospital Outpatient Visit on 08/19/2020 Component Date Value Ref Range Status SODIUM 08/19/2020 141 133 - 146 mmol/L Final POTASSIUM 08/19/2020 3.9 3.3 - 5.1 mmol/L Final CHLORIDE 08/19/2020 106 96 - 108 mmol/L Final CO2 08/19/2020 24 21 - 35 mmol/L Final BUN 08/19/2020 14 6 - 19 mg/dL Final CREATININE 08/19/2020 1.40 0.5 - 1.5 mg/dL Final GLUCOSE 08/19/2020 108* 70 - 99 mg/dL Final ALBUMIN 08/19/2020 4.3 3.9 - 4.8 g/dL Final TOTAL PROTEIN 08/19/2020 7.0 6.5 - 8.0 g/dL Final CALCIUM 08/19/2020 9.3 8.4 - 10.3 mg/dL Final ALKALINE PHOSPHATASE 08/19/2020 116 39 - 117 U/L Final TOTAL BILIRUBIN 08/19/2020 0.2 0.0 - 1.2 mg/dL Final AST 08/19/2020 56* 0 - 37 U/L Final ALT 08/19/2020 49* 0 - 40 U/L Final GLOBULIN 08/19/2020 2.7 1 - 4.8 g/dL Final EGFR 08/19/2020 53* >59 mL/min/1.73m2 Final Estimated glomerular filtration rate calculated using the CKD-EPI equation. ANION GAP 08/19/2020 15 10 - 20 mmol/L Final URIC ACID 08/19/2020 7.0 2.4 - 7.0 mg/dL Final Assessment & Plan (12/25/2019 11:33 AM EDT): Patient's gout has been stable and under good control with the use of Uloric and PRN use of indomethacin. He has also been able to maintain a low purine diet. Reviewed the last lab work with him. Spoke about the likely elevation of his liver transaminases as a result of taking Uloric. He is not drinking alcohol now so I do not think this is having an effect. I have asked him to reduce his Uloric dosage from 40 mg daily to 40 mg Wednesday and Wednesday and he will continue his purine restricted diet. He will have his liver function test and uric acid level repeated on January 28 and I will get back to him by phone call. If his uric acid level is therapeutic and he remains clinically quiet then we will continue him on this alternate day dosage. I talked to him about intervening acutely if he has a flare of gout with 50 mg of indomethacin with food and to repeated x1 in 4 hours and then to call me. He will try to keep well-hydrated. All of his questions were answered. 28 minutes was spent on this telemedicine visit. Hospital Outpatient Visit on 12/19/2019 Component Date Value Ref Range Status SODIUM 12/19/2019 140 133 - 146 mmol/L Final POTASSIUM 12/19/2019 4.0 3.3 - 5.1 mmol/L Final CHLORIDE 12/19/2019 103 96 - 108 mmol/L Final CO2 12/19/2019 28 21 - 35 mmol/L Final BUN 12/19/2019 15 6 - 19 mg/dL Final CREATININE 12/19/2019 1.30 0.5 - 1.5 mg/dL Final GLUCOSE 12/19/2019 74 70 - 99 mg/dL Final ALBUMIN 12/19/2019 4.4 3.9 - 4.8 g/dL Final TOTAL PROTEIN 12/19/2019 7.1 6.5 - 8.0 g/dL Final CALCIUM 12/19/2019 9.2 8.4 - 10.3 mg/dL Final ALKALINE PHOSPHATASE 12/19/2019 104 39 - 117 U/L Final TOTAL BILIRUBIN 12/19/2019 0.3 0.0 - 1.2 mg/dL Final AST 12/19/2019 40* 0 - 37 U/L Final ALT 12/19/2019 44* 0 - 40 U/L Final GLOBULIN 12/19/2019 2.7 1 - 4.8 g/dL Final EGFR 12/19/2019 59* >59 mL/min/1.73m2 Final If patient is black, multiply result by 1.159. Estimated glomerular filtration rate calculated using the CKD-EPI equation. ANION GAP 12/19/2019 13 10 - 20 mmol/L Final Hospital Outpatient Visit on 11/20/2019 Component Date Value Ref Range Status SODIUM 11/20/2019 138 133 - 146 mmol/L Final POTASSIUM 11/20/2019 4.1 3.3 - 5.1 mmol/L Final CHLORIDE 11/20/2019 101 96 - 108 mmol/L Final CO2 11/20/2019 23 21 - 35 mmol/L Final BUN 11/20/2019 17 6 - 19 mg/dL Final CREATININE 11/20/2019 1.30 0.5 - 1.5 mg/dL Final GLUCOSE 11/20/2019 140* 70 - 99 mg/dL Final ALBUMIN 11/20/2019 4.3 3.9 - 4.8 g/dL Final TOTAL PROTEIN 11/20/2019 7.2 6.5 - 8.0 g/dL Final CALCIUM 11/20/2019 9.1 8.4 - 10.3 mg/dL Final ALKALINE PHOSPHATASE 11/20/2019 107 39 - 117 U/L Final TOTAL BILIRUBIN 11/20/2019 0.2 0.0 - 1.2 mg/dL Final AST 11/20/2019 44* 0 - 37 U/L Final ALT 11/20/2019 44* 0 - 40 U/L Final GLOBULIN 11/20/2019 2.9 1 - 4.8 g/dL Final EGFR 11/20/2019 59* >59 mL/min/1.73m2 Final If patient is black, multiply result by 1.159. Estimated glomerular filtration rate calculated using the CKD-EPI equation. ANION GAP 11/20/2019 18 10 - 20 mmol/L Final URIC ACID 11/20/2019 6.5 2.4 - 7.0 mg/dL Final Assessment & Plan (11/28/2018 4:39 PM EDT): He is doing quite well on uloric without gouty episodes and with a normal serum uric acid level no side effects. His uric acid was 6.5 last year. In June of last year his alkaline phosphatase was 122 with a GFR of 54 and an AST of 29 and an ALT of 29. I will repeat the lab work today and get back to him in for now leave dosages of his medications unchanged. He will try to maintain a low purine diet and avoid alcohol as much as possible. Assessment & Plan (05/30/2018 5:57 PM EDT): Patient's gout is under good control using 40mg of uloric a day. No side effects. 6 months ago his uric acid was 6.5 which is therapeutic. His alkaline phosp , AST, and ALT were 122, 34, and 40 respectively which were normal and his hemoglobin remained stable at 15.6 with a hematocrit of 44.7 and a white count of 10,400 with a normal differential. In addition to weight control and a low appearing diet and moderating his alcohol intake he will continue on his current medication regimen and I will recheck this week and a uric acid and a chemistry profile. I will call him with the results. Assessment & Plan (12/01/2017 3:06 PM EDT): Patient's gout is stable. Last uric acid was 7.0. His AST was 28 with an alkaline phosphatase of 104 and an ALT of 33 and a hematocrit of 43.8. He will remain on 40 mg of uloric daily and stay on a low purine diet. We discussed strategies for weight reduction as well as including a low carbohydrate Mediterranean style diet in his regimen. We also discussed moderating his beer and alcohol consumption. All of his questions were answered. Greater than 50% of this 28 minute visit was spent in [id number] conversation with the patient's going over the natural history of gout, dietary discretion and modifications, risks of continued use of uloric. Encounters Date Type Department Care Team Description 06/13/2025 Refill [facility] [address], [address] [place] [address] Antoinette Tomlinson PA-C 06/13/2025 Orders Only [facility] [address], [address] [place] [address] Antoinette Tomlinson PA-C Benign essential hypertension (Primary Dx) 06/07/2025 11:12 AM EDT Anesthesia Event [facility] [address] [place] [address] Ruby Garcia MD 06/07/2025 10:32 AM EDT - 06/07/2025 11:59 PM EDT Hospital Encounter [facility] [address] [place] [address] Otilio Phipps MD Gerlach, Brooke Fay, MD Discharge Disposition: Home or Self Care 05/29/2025 11:30 AM EDT - 05/29/2025 11:59 PM EDT Hospital Encounter [facility] [address] [place] [id number] Otilio Phipps MD Discharge Disposition: Home or Self Care 05/22/2025 Procedure Pass [facility] [address] [place] [address] 05/22/2025 Orders Only [facility] [address], [address] [place] [address] Antoinette Tomlinson PA-C Persistent atrial fibrillation (Primary Dx) 05/16/2025 10:30 AM EDT Office Visit [facility] [address], [address] [place] [address] Antoinette Tomlinson PA-C Atrial fibrillation, unspecified type (Primary Dx); Atherosclerosis of [place] coronary artery of [place] heart without angina pectoris; Benign essential hypertension; Other hyperlipidemia; Mitral valve disease 04/09/2025 11:41 AM EDT - 04/09/2025 11:59 PM EDT Hospital Encounter [facility] [address] [place] [address] Otilio Phipps MD Discharge Disposition: Home or Self Care 04/02/2025 Orders Only [facility] [address], [address] [place] [address] Otilio Phipps MD Atherosclerosis of [place] coronary artery of [place] heart without angina pectoris (Primary Dx) 03/23/2025 Telephone [facility] [address], [address] [place] [address] Trudy Jay PA-C, MPH 03/22/2025 11:40 AM EDT - 03/22/2025 1:00 PM EDT Surgery [facility] [address] [place] [address] Otilio Phipps MD Right and Left Heart Catheterization with possible LVGRAM 03/22/2025 10:29 AM EDT - 03/22/2025 3:31 PM EDT Hospital Encounter [facility] [address] [place] [address] Otilio Phipps MD Discharge Disposition: Home or Self Care 03/22/2025 Procedure Pass [facility] [address] [place] [address] from Last 3 Months Social History Tobacco Use Types Packs/Day Years Used Date Smoking Tobacco: Former Cigarettes Q uit: 2008 Smokeless Tobacco: Never Tobacco Cessation:Counseling Given: Not Answered Alcohol Use Standard Drinks/Week Comments Not Currently [...] on file Sexual Orientation Not on file Last Filed Vital Signs Vital Sign Reading Time Taken Comments Blood Pressure 94/69 06/07/2025 11:50 AM EDT Pulse 77 06/07/2025 11:50 AM EDT Temperature 37.1 C (98.7 F) 08/26/2020 3:10 PM EST Respiratory Rate 0 06/07/2025 11:50 AM EDT Oxygen Saturation 99% 06/07/2025 11:50 AM EDT Inhaled Oxygen Concentration - - Weight 98.9 kg (218 lb) 05/16/2025 10:22 AM EDT Height 182.9 cm (6' 0.01 ) 05/16/2025 10:22 AM E DT Body Mass Index 29.56 05/16/2025 10:22 AM EDT Plan of Treatment Upcoming Encounters Date Type Department Care Team (Late st Contact Info) Description 05/16/2025 Procedure Pass [facility] [address] [place] [address] 08/16/2025 2:00 PM EST Appointment [facility] [address] [place] [address] Antoinette Tomlinson PA-C [address] [place] [id number] 09/03/2025 3:00 PM EST Office Visit [facility] [address] [place] [address] [address] Floor, [address] [place] [address] Otilio Phipps MD [address] [facility], [address] [place] [address] [email or web address] Health Maintenance Due Date Last Done Comments Adult Td,Tdap Booster 1958 DEPRESSION SCREENING 1970 COLOGUARD 2003 COLONOSCOPY 2003 COLORECTAL CANCER SCREENING 2003 FIT TEST 2003 FOBT 2003 SIGMOIDOSCOPY 2003 VIRTUAL COLONOSCOPY 2003 PNEUMOCOCCAL VACCINES (50+ years) (1 of 1 - PCV) 2008 ZOSTER VACCINES (1 of 2) 2008 RSV VACCINE (1 - Risk 60-74 years 1-dose series) 2018 ABDOMINAL AORTIC ANEURYSM (AAA) SCREENING 2023 04/15/2020 INFLUENZA VACCINE (#1) 2025 COVID-19 VACCINE (2 - season) 2025 01/19/2021 BLOOD PRESSURE 11/13/2025 05/16/2025 TSH LEVEL 03/09/2026 03/09/2025, 10/0 09/2017, 12/01/2017 SMOKING Hx and SMOKELESS TOBACCO SCREENING 05/16/2026 05/16/2025 CREATININE LEVEL 05/29/2026 05/29/2025, , 03/09/2025, Additional history exists SCREENING FOR DIABETES 05/29/2028 05/29/2025, 2021 HEPATITIS C SCREENING Completed 2020, 020 HEPATITIS A VACCINES Aged Out No long er eligible based on patient's age to complete this topic HIB VACCINES Aged Out No longer eligi ble based on patient's age to complete this topic MENINGOCOCCAL VACCINES (ACWY) Aged Out No longer eligible based on patient's age to complete this topic MENINGOCOCCAL VACCINES (B) Aged Out N o longer eligible based on patient's age to complete this topic Medical Devices Not on file Procedures Procedure Name Priority Date/Time Associated Diagnosis Comments ECG 12-LEAD Routine 06/07/2025 11:33 AM EDT CARDIOVERSION Routine 06/07/2025 11:30 AM EDT Persistent atrial fibrillation ECG 12-LEAD Routine 06/07/2025 10:48 AM EDT BASIC METABOLIC PANEL Routine 05/29/2025 11:31 AM EDT Persistent atrial fibrillation CBC AND DIFFERENTIAL Routine 05/29/2025 11:31 AM EDT Persistent atrial fibrillation CBC AND DIFFERENTIAL Routine 04/09/2025 11:41 AM EDT Atherosclerosis of [place] coronary artery of [place] heart without angina pectoris BASIC METABOLIC PANEL Routine 04/09/2025 11:41 AM EDT Atherosclerosis of [place] coronary artery of [place] heart without angina pectoris PT-INR Routine 04/09/2025 11:41 AM EDT Atherosclerosis of [place] coronary artery of [place] heart without angina pectoris RIGHT AND LEFT HEART CATHETERIZATION WITH POSSIBLE LVGRAM Routine 03/22/2025 12:20 PM EDT Mitral valve disease POCT VENOUS BLD GAS Routine 03/22/2025 1 2:03 PM EDT ECG 12-LEAD Routine 03/22/2025 10:56 AM EDT TSH WITH REFLEX Routine 03/09/2025 8:19 AM EDT Mitral valve disease Coronary artery disease involving [place] coronary artery of [place] heart with angina pectoris CT ABDOMEN WITH CONTRAST Routine 04/15/2020 1:35 PM EDT Fatty liver HEPATITIS C ANTIBODY, QUALITATIVE Routine 2020 8:32 AM EDT Fatty liver from Last 3 Months or Most Recently Relevant to Health Maintenance Results * ECG 12-LEAD (06/07/2025 11:33 AM EDT) Only the most recent of3 resultswithin the time period is included. Ventricular Rate EKG/MIN 81 BPM [facility] Atrial Rate 81 BPM [facility] RI Interval 202 ms [facility] QRS Duration 80 ms [facility] QT Interval 410 ms [facility] QTC Interval 476 ms [facility] P [place] 48 degrees [facility] R Wave [place] 6 degrees [facility] T Wave [place] 100 degrees [facility] 06/07/2025 11:3 3 AM EDT 06/07/2025 12:41 PM EDT Narrative [facility] - 06/07/2025 12:41 PM EDT Normal sinus rhythm T wave abnormality, consider lateral ischemia Prolonged QT Abnormal ECG When compared with ECG of 07-Jun-2025 10:48, Sinus rhythm has replaced Atrial fibrillation Confirmed by Shahid Amor ([id number]) on 06/07/2025 12:41:12 PM us Otilio Phipps MD ECG ORDERABLES Final Resul t [facility] * CARDIOVERSION (06/07/2025 11:30 AM EDT) Anatomical Region Laterality Modality Ultrasound Narrative 06/07/2025 11:31 AM EDT Successful cardioversion from atrial fibrillation to normal sinus rhythm using 360 J biphasic. Plan: Continue current medications. Hopefully his LV function will improve we will repeat an echocardiogram in 2 to 3 months. Cardioversion UNIVERSAL PROTOCOL: Consent obtained: Yes Time out: Immediately prior to the procedure a time out was called A time out verifies correct patient, procedure, equipment, administrative support assistant and site/side marked as required. SEDATION: Patient sedated?: Yes Please see separate sedation documentation. PRE-PROCEDURE: Cardioversion basis: elective Pre-procedure rhythm: atrial fibrillation Electrodes: pads Electrodes placement: anterior-posterior ATTEMPT DETAILS: Number of attempts: 2 Attempt 1 mode: synchronous Attempt 1 waveform: biphasic Attempt 1 shock (Joules): 200 Attempt 1 outcome: no change in rhythm Attempt 2 mode: synchronous Attempt 2 waveform: biphasic Attempt 2 shock (Joules): 360 Attempt 2 outcome: conversion to normal sinus rhythm POST-PROCEDURE: Post-procedure rhythm: normal sinus rhythm us Otilio Phipps MD [facility] ORDERAB LES Final Result * (ABNORMAL) CBC and differential (05/29/2025 11:31 AM EDT) Only the most recent of2 resultswithin the time period is included. WBC 8.86 4.00 - 11.00 K/uL [facility] RBC 5.79 4.50 - 5.90 M/uL [facility] HGB 16.8 13.5 - 17.5 g/dL [facility] HCT 49.5 41.0 - 53.0 % [facility] PLT 208 150 - 450 K/uL [facility] MCV 85.5 80.0 - 100.0 fL [facility] MCH 29.0 27.0 - 31.0 pg [facility] MCHC 33.9 32.0 - 36.0 g/dL [facility] RDW 18.2(H) 11.5 - 14.5 % [facility] MPV 11.7 8.4 - 12.0 fL [facility] NRBC 0.20(H) 0.00 /100 WBCs [facility] ABSOLUTE NRBC 0.02(H) 0.00 K/uL [facility] DIFF METHOD Auto [facility] NEUTS 52.5 48.0 - 76.0 % [facility] LYMPHS 29.7 18.0 - 41.0 % [facility] MONOS 10.7 4.0 - 11.0 % [facility] EOS 5.9(H) 0.0 - 5.0 % [facility] BASOS 0.9 0.0 - 1.5 % [facility] Granulocytes, immature (%) 0.3 0.0 - 0.9 % [facility] ABSOLUTE NEUTS 4.65 1.92 - 7.60 K/uL [facility] ABSOLUTE LYMPHS 2.63 0.72 - 4.10 K/uL [facility] ABSOLUTE MONOS 0.95 0.16 - 1.10 K/uL [facility] ABSOLUTE EOS 0.52(H) 0.00 - 0.50 K/uL [facility] ABSOLUTE BASOS 0.08 0.00 - 0.15 K/uL [facility] Granulocytes, immature 0.03 0.00 - 0.09 K/uL [facility] Blood 05/29/2025 11:3 1 AM EDT 05/29/2025 11:32 AM EDT us Otilio Phipps MD LAB BLOOD ORDERABLES Final Result [address] [address] * (ABNORMAL) Basic metabolic panel (05/29/2025 11:31 AM EDT) Only the most recent of2 resultswithin the time period is included. SODIUM 140 133 - 146 mmol/L [facility] CHLORIDE 102 96 - 108 mmol/L [facility] POTASSIUM 4.7 3.3 - 5.1 mmol/L [facility] CO2 24 21 - 35 mmol/L [facility] BUN 21(H) 6 - 19 mg/dL [facility] CREATININE 1.20 0.5 - 1.5 mg/dL [facility] GLUCOSE 89 70 - 99 mg/dL [facility] CALCIUM 9.2 8.4 - 10.3 mg/dL [facility] EGFR 66 >59 mL/min/1.7 3m2 [facility] Comment:Estimated glomerular filtration rate calculated using the CKD-EPI refit equation. ANION GAP 19 10 - 20 mmol/L [facility] Blood 05/29/2025 11:3 1 AM EDT 05/29/2025 11:32 AM EDT us tOilio Phipps MD LAB BLOOD ORDERABLES Final Result Performing Organization Address [facility] Co de Phone Number [address] [address] * (ABNORMAL) PT-INR (04/09/2025 11:41 AM EDT) PT 17.0(H) 10.2 - 12.9 sec [facility] INR 1.4(H) 0.9 - 1.1 [facility] Comment:Therapeutic range fo r oral Vitamin K antagonists: 2.0-3.5 Blood 04/09/2025 11:4 1 AM EDT 04/09/2025 11:43 AM EDT us Otilio Phipps MD LAB BLOOD ORDERABLES Final Result Performing Organization Address [facility] Co de Phone Number [address] [address] * RIGHT AND LEFT HEART CATHETERIZATION WITH POSSIBLE LVGRAM (03/22/2025 12:20 PM EDT) Anatomical Region Laterality Modality X-Ray Angiograph y Addenda Addendum by Otilio Phipps MD on 03/22/2025 12:48 PM EDT Procedure: Right left heart catheterization, coronary angiogram, left ventriculogram. Findings: PA pressure 30/13 mean of 22 Pulmonary wedge pressure mean of 19 RV pressure 27/7 RA pressure mean of 11 LV pressure 112/19 Aortic pressure 106/80 Arterial sat 95% PA sat 57% cardiac output 3.0 cardiac index 1.4. Left ventriculogram severe LV dysfunction EF 25%. Only 1-2+ mitral regurgitation difficult to see Coronary angiogram Left main proximal eccentric 35% LAD proximal 40%, mid 85% stenosis, distal LAD 80% steosis, D1 has ostial 90% and diffuse 80% after that it is somewhat small. D2 is bigger Circumflex mild diffuse disease proximal 40% OM1 40% RCA dominant proximal 90% mid to distal 50%. Conclusion: Normal PA pressure but mildly elevated LVEDP/pulm artery wedge pressure. Severe LV dysfunction EF 25%. Low cardiac output. Mild to moderate mitral regurgitation. There is diffuse atherosclerosis with somewhat calcified vessels. Most notable is severe stenosis of the LAD mid vessel and severe stenosis of the proximal RCA. Plan: I suspect his coronary artery disease is contributing to his cardiomyopathy. I would recommend setting up a cardiac catheterization at [facility] where I can better visualize the left main and consider stenting of the mid and distal LAD and proximal RCA. After that if his EF does not improve could consider cardioversion to maintain sinus rhythm. He looks euvolemic on exam. For now continue his current heart failure medications. After revascularization we will continue to titrate these meds and consider adding Jardiance and spironolactone. Today I am going to add clopidogrel with 300 mg load then 75 mg daily in preparation for stenting and atorvastatin 40 mg daily. Goal LDL less than 70. Cardiac catheterization [facility] will be arranged and I will get him good follow-up. Study Details 64-year-old man found to have atrial fibrillation and severe LV dysfunction EF 25% moderate to severe mitral regurgitation. Here for right left heart catheterization to evaluate etiology of cardiomyopathy. us Otilio Phipps MD CV CARDIAC CATH ORDERABLES Edited Result - Final * (ABNORMAL) POCT Venous blood gas (03/22/2025 12:03 PM EDT) SODIUM 143 133 - 145 mmol/L [facility] POTASSIUM 4.2 3.3 - 5.1 mmol/L [facility] PH (VENOUS) 7.39 7.31 - 7.41 [facility] PCO2 (VENOUS) 41 41 - 51 mm[Hg] [facility] PO2 (VENOUS) 30(L) 35 - 40 mm[Hg] [facility] BASE EXCESS 0.0 0 - 2 mmol/L [facility] SO2-VENOUS (SO2, venous) 57.0(L) 60 - 80 % [facility] BICARBONATE (VENOUS) 25 23 - 28 mmol/L [facility] 03/22/2025 12:0 3 PM EDT 03/23/2025 6:41 AM EDT Otilio Phipps MD POINT OF CARE TEST ORDERABL ES Final Result Performing Organization Address [facility]/ZIP Co de Phone Number [address] [address] * (ABNORMAL) TSH with reflex (03/09/2025 8:19 AM EDT) TSH 5.72(H) 0.27 - 4.20 uIU/mL [facility] Blood 03/09/2025 8:19 AM EDT 03/09/2025 8:28 AM EDT Otilio Phipps MD LAB BLOOD ORDERABLES Final Result Performing Organization Address [facility] Co de Phone Number [address] [address] * CT ABDOMEN WITH CONTRAST (04/15/2020 1:35 PM EDT) Anatomical Region Laterality Modality Abdomen, Abdominal Vasculature C omputed Tomography 04/15/2020 1:50 PM EDT Impressions 04/15/2020 1:55 PM EDT Slightly heterogeneous and low density liver on liver windows suggest mild hepatic steatosis. Too small to characterize lesion right hepatic lobe likely to represent a benign structure. No clearly worrisome masses or changes of cirrhosis apparent. Narrative 04/15/2020 1:55 PM EDT HISTORY: Abnormal liver function tests. Cirrhosis or fatty liver COMPARISON: None TECHNIQUE: After the administration of oral and intravenous contrast, scanning is obtained from dome of the liver to the iliac crests. Sagittal and coronal reformats generated. Automated exposure control utilized. CT ABDOMEN FINDINGS: Lung bases: No findings of concern. Liver and spleen: Liver is borderline low density and some zones which may reflect some mild hepatic steatosis. A sub-centimeter hypodense area in the caudal right hepatic lobe is too small for definitive characterization but likely to represent an incidental cyst or other benign structure. Spleen unremarkable. Biliary tree and pancreas: No findings of concern. Adrenals and kidneys: No findings of concern. Bowel: There is some colonic diverticulosis in the [id number] but no evidence of colitis or diverticulitis. Stomach and duodenum unremarkable. Nodes: No adenopathy is detected. Vascular: No findings of concern Soft tissue: No ascites, inflammatory change or fluid collection. There is a tiny calcification in the abdominal wall fat near the level of the iliac crests, possibly old inflammatory. Bones: Degenerative disc disease with vacuum phenomenon at several levels, including within a disc protrusion at L5-S1. No compression deformity or bony destructive lesion. Procedure Note Jarvis Peters MD - 04/15/2020 HISTORY: Abnormal liver function tests. Cirrhosis or fatty liver COMPARISON: None TECHNIQUE: After the administration of oral and intravenous contrast,scanning is obtained from dome of the liver to the iliac crests. [place] coronal reformats generated. Automated exposure control utilized. CT ABDOMEN FINDINGS: Lung bases: No findings of concern. Liver and spleen: Liver is borderline low density and some zones which mayreflect some mild hepatic steatosis. A sub-centimeter hypodense area inthe caudal right hepatic lobe is too small for definitive characterizationbut likely to represent an incidental cyst or other benign structure.Spleen unremarkable. Biliary tree and pancreas: No findings of concern. Adrenals and kidneys: No findings of concern. Bowel: There is some colonic diverticulosis in the [id number] but noevidence of colitis or diverticulitis. Stomach and duodenumunremarkable. Nodes: No adenopathy is detected. Vascular: No findings of concern Soft tissue: No ascites, inflammatory change or fluid collection. There derek tiny calcification in the abdominal wall fat near the level of the iliaccrests, possibly old inflammatory. Bones: Degenerative disc disease with vacuum phenomenon at several levels,including within a disc protrusion at L5-S1. No compression deformity orbony destructive lesion. IMPRESSION: Slightly heterogeneous and low density liver on liver windows suggest mildhepatic steatosis. Too small to characterize lesion right hepatic lobelikely to represent a benign structure. No clearly worrisome masses orchanges of cirrhosis apparent. us Daryl Biswas MD IMG CT XSPECIALTY ORDERABL ES Final Result * Hepatitis C antibody, qualitative (2020 8:32 AM EDT) HCV NON-REACTIV E NON-REACTI VE [facility] Blood 2020 8:32 AM EDT 2020 12:00 PM EDT us Daryl Biswas MD LAB BLOOD ORDERABLES Final Result [facility] [address] [place] [address] from Last 3 Months or Most Recently Relevant to Health Maintenance Insurance [place]PO [place] [address] [place] [address] [place] [address] [place] [address] [place] [address] [place] [address] PPO EPO [facility] PPO EPO Care Teams Marketing Systems Analyst Relationship Specialty Start Date End Date Rogelio Juarez DO PCP - General 08/12/17 Daryl Biswas MD [email or web address] Historical LMR Provider 06/29/17 Rogelio Juarez DO [address] [place] [address] [email or web address] Insurance Assigned Provider 12/18/23 Additional Source Comments The information contained in this document represents components of the legal health record. It is not the complete legal health record.[facility]
--- OUTSIDE RECORDS SUMMARY | 2025-06-19 14:17 | XMS_ITS | Encounter Summary ---
Author Organization [facility] Address [address] [place] [address] Phone Care Team Providers Care Senior Director Insight Name Role Phone Daryl Biswas MD Unavailable [email or web address] Rogelio Juarez DO Primary Care Provider [phone] Rogelio Juarez DO Unavailable Encounter Details Date Type Department Care Team (Late st Contact Info) Description 06/13/2025 Orders Only [facility] [address] Floor, [address] [place] [address] Antoinette Tomlinson PA-C [address] [place] [address] [email or web address] Benign essential hypertension (Primary Dx) Social History Tobacco Use Types [...] Info) Description 05/16/2025 Procedure Pass [facility] [address] [place] [address] 08/16/2025 2:00 PM EST Appointment [facility] [address] [place] [address] Antoinette Tomlinson PA-C [address] [place] [id number] [email or web address] 09/03/2025 3:00 PM EST Office Visit [facility] [address] [place] [address] [address]rd Floor, [address] [place] [phone] Otilio Phipps MD [address] [place] [id number] [email or web address] documented as of this encounter Visit Diagnoses Diagnosis Benign essential hypertension- Primary Essential hypertension, benign documented in this encounter Care Teams Senior Director Insight Relationship Specialty Start Date End Date Rogelio Juarez DO PCP - General 08/12/17 Daryl Biswas MD [email or web address] Historical LMR Provider 06/29/17 Rogelio Juarez DO [address] [place] [address] [email or web address] Insurance Assigned Provider 12/18/23 documented as of this encounter Additional Source Comments The information contained in this document represents components of the legal health record. It is not the complete legal health record.[facility]
[2025-06-19 14:22] LABS: Alanine Aminotransferase 40 U/L (0-40); Albumin Level 4.6 g/dL (3.5-5.0); Alkaline Phosphatase 123 U/L (39-117); Anion Gap 12 (12-20); Aspartate Amino Transferase 35 U/L (5-37); Blood Urea Nitrogen 25 mg/dL (9-16); Calcium 9.1 mg/dL (8.4-10.2); Carbon Dioxide 26 mmol/L (22-29); Chloride 107 mmol/L (96-108); Estimated Glomerular Filt Rate 57; Potassium 4.3 mmol/L (3.3-5.1); Sodium 141 mmol/L (135-145); Total Protein 7.6 g/dL (6.5-8.0)
== END 2025-06-19 11:22 | disposition home or self-care (01) ==
LOC: HO.MANLDS 11:21
PROVIDERS: Visit Provider Physician Assistant
DX: H35.89 Other specified retinal disorders (principal)
CPT/HCPCS: 36415; 80053; 85025; 85652; 86140